=== PATIENT | female | born 2000 | race Two or more races ===

== ENCOUNTER 2019-12-12 10:15 | Inpatient (IN) | payer OTHER ==
[~2019-12-12] VITALS: Ht 157.5 cm; Wt 78.5 kg
== END 2019-12-22 13:48 | DRG 807 ==
LOC: LDR 12-20 09:54 → OB/GYN 12-20 09:54 → LDR 12-22 10:15 → OB/GYN 12-22 13:48
PROVIDERS: ADMIT Obstetrics & Gynecology; ATTEND Obstetrics & Gynecology
PROC: 10E0XZZ Delivery of Products of Conception, External Approach (ICD-10-PCS; principal; 2019-12-20)
PROC: 4A1HXCZ Monitoring of Products of Conception, Cardiac Rate, External Approach (ICD-10-PCS; 2019-12-20)
DX: O80 Encounter for full-term uncomplicated delivery (principal); Z37.0 Single live birth; Z3A.39 39 weeks gestation of pregnancy; Z20.828 Contact with and (suspected) exposure to other viral communicable diseases